=== PATIENT | male | born 2000 | race Caucasian/White ===

== ENCOUNTER 2020-12-03 12:41 | Emergency (ER) | payer OTHER ==
[~2020-12-03] VITALS: Wt 63.6 kg
[2020-12-03 13:09] VITALS: BP 117/62
[2020-12-03] MEDS ORDERED: DOXYCYCLINE HY100 M5 PO (13:47)
== END 2020-12-03 13:52 | disposition home or self-care (01) ==
LOC: ED 12:41
DX: S40.862A Insect bite (nonvenomous) of left upper arm, initial encounter (principal); F17.210 Nicotine dependence, cigarettes, uncomplicated; W57.XXXA Bitten or stung by nonvenomous insect and other nonvenomous arthropods, initial encounter